=== PATIENT | male | born 1985 | race Caucasian/White ===

== ENCOUNTER 2016-10-07 10:36 | Emergency (ER) | payer SELFPAY ==
--- NOTE | 2016-10-07 12:51 | RAD ---
CHEST 2 VIEWS HISTORY: Shortness of breath and coughing. Frontal and lateral chest radiographs dated 10/07/2016. COMPARISON: None. FINDINGS: FOCAL AIRSPACE OPACITY: Airspace consolidation involving the left upper and left lower lobes, concerning for multifocal pneumonia. PLEURAL EFFUSION: None. CARDIOMEDIASTINAL SILHOUETTE: Distortion of left hilar contour. No cardiac enlargement. PNEUMOTHORAX: None identified. OSSEOUS STRUCTURES: No grossly destructive lesions. IMPRESSION: 1. Airspace disease of the left upper and left lower lobes compatible with multifocal pneumonia. 2. Short-term radiographic follow-up is recommended to ensure resolution of airspace disease and left hilar prominence, as a post obstructive process is not excluded. Postcontrast CT would be another consideration.
[2016-10-07] MEDS ORDERED: AMOX 875 MG/CLAV 125 MG 1 EACH TABLET ONE (13:26)
[2016-10-07] MEDS ORDERED: DOXYCYCLINE HYCLATE 100 MG TABLET ONE (13:26)
[2016-10-07] MEDS ORDERED: IBUPROFEN 600 MG TABLET ONE (13:26)
[2016-10-07] MEDS ORDERED: ACETAMINOPHEN 325 MG TABLET ONE (13:26)
== END 2016-10-07 13:48 | disposition home or self-care (01) ==
LOC: ED 10:36
DX: J18.9 Pneumonia, unspecified organism (principal); J45.909 Unspecified asthma, uncomplicated; F17.210 Nicotine dependence, cigarettes, uncomplicated
CPT/HCPCS: 71020; 87804; 99284; 99283; A9270 ×4